=== PATIENT | female | born 1990 | race Caucasian/White ===

== ENCOUNTER → 2022-12-29 | Outpatient (CLI) | payer BC ==
--- NOTE | 2022-12-29 14:27 | Diagnostic Imaging Report ---
INDICATION: Encounter for supervision of normal in the first trimester. TECHNIQUE: Multiple real-time grayscale images were obtained over the gravid uterus. COMPARISON: None. FINDINGS: There is a single living intrauterine in a transverse presentation with the head to the maternal right. The amniotic fluid index is 11.3. The placenta is posterior and somewhat low lying. Heart rate is 125 BPM and regular. The anatomical survey is unremarkable. This includes a three-vessel cord and four-chamber heart. Cervical length is 5.8 cm. The distance from the tip of the placenta to internal os is 2.2 cm. The biometry correlates with a gestational age of 20 weeks 6 days. IMPRESSION: Single living intrauterine with a sonographically estimated gestational age of 20 weeks 6 days and estimated date of confinement of 05/12/2023. Low-lying placenta without evidence of previa. Biometrical measurements are as follows: Biparietal 4.78 cm, age 20 weeks 4 days. Head circumference 18.67 cm, age 21 weeks 0 days. Abdominal circumference 16.11 cm, age 21 weeks 2 days. Femur length 3.35 cm, age 20 weeks 4 days. Sonographic estimate age: 20 weeks 6 days. Sonographic estimated date of delivery: 05/12/2023. Estimated Weight: 383 gm (+/- 56 gm). LMP percentile: 89%. heart rate: 125 beats per minute. number: 1 of 1. Dictated by: Dictated on workstation # [email or web address]
== END ==
LOC: RAD 09:26
PROVIDERS: ATTEND Nurse Practitioner Women's Health
DX: Z34.82 Encounter for supervision of other normal pregnancy, second trimester (principal); Z3A.20 20 weeks gestation of pregnancy
CPT/HCPCS: 76805

== ENCOUNTER → 2023-01-17 | Outpatient (CLI) | payer BC ==
--- NOTE | 2023-01-17 14:10 | Diagnostic Imaging Report ---
PROCEDURE: US left lower extremity venous. TECHNIQUE: Multiple real-time grayscale images were obtained over the left lower extremity in various projections. Additional duplex Doppler and color Doppler images were also obtained. INDICATION: Left leg pain. FINDINGS: There is no evidence of left lower extremity DVT. The left lower extremity deep venous system shows normal compressibility with normal response to augmentation and Valsalva. No fluid collection or mass is detected. IMPRESSION: No evidence of left lower extremity DVT. Dictated by: Dictated on workstation # [id number]
== END ==
LOC: RAD 11:00
PROVIDERS: ATTEND Nurse Practitioner Women's Health
DX: M79.605 Pain in left leg (principal)

== ENCOUNTER 2023-02-17 17:08 | Outpatient (CLI) | payer BC ==
[~2023-02-17] VITALS: Ht 157.5 cm; Wt 103.6 kg
[2023-02-17 17:46] VITALS: BP 106/58
[2023-02-17 18:33] LABS: BACTERIA,URINE NEGATIVE /HPF; BILIRUBIN,URINE NEGATIVE (NEGATIVE); CLARITY,URINE CLEAR; COLOR,URINE YELLOW; GLUCOSE, URINE (UA) 1+ (NEGATIVE); KETONES,URINE NEGATIVE (NEGATIVE); LEUKOCYTE ESTERASE ,URINE NEGATIVE (NEGATIVE); NITRITE,URINE NEGATIVE (NEGATIVE); PROTEIN,URINE NEGATIVE (NEGATIVE); WBC,URINE RARE /HPF
--- NOTE | 2023-02-20 08:12 | Physician Query-Final Dx ---
Clinic Account Progress/Dx Physician Query: Please give diagnosis Please include # weeks gestation Date of Service Feb 17, 2023 at 17:08 SPENCER,MarFeb 20, 2023 08:12
== END 2023-02-17 19:05 | disposition home or self-care (01) ==
LOC: WSo 17:08 → LDRP 17:09 → WSo 19:05
PROVIDERS: ATTEND Obstetrics & Gynecology
DX: O99.891 Other specified diseases and conditions complicating pregnancy (principal); R10.9 Unspecified abdominal pain; Z3A.00 Weeks of gestation of pregnancy not specified
CPT/HCPCS: 81000; 99213